=== PATIENT | male | born 2000 | race Caucasian/White ===

== ENCOUNTER 2023-10-08 13:19 | Emergency (ER) | payer OTHER, SELFPAY ==
[2023-10-08 13:32] VITALS: BP 184/92; PULSE 106; RESP 16; TEMP 36.8; O2SAT 98; BMI 19.3
[2023-10-08 14:27] LABS: Alanine Aminotransferase 20 IU/L (<50); Albumin 4.9 g/dL (3.5-5.0); Albumin Globulin Ratio 1.5 (1.0-2.8); Alkaline Phosphatase 70 U/L (38-126); Aspartate Aminotransferase 42 IU/L (17-59); Bilirubin Total 1.3 mg/dL (0.2-1.3); Blood Urea Nitrogen 15 mg/dL (9-20); Carbon Dioxide 30 mmol/L (22-32); Chloride 100 mmol/L (98-107); Estimated Glomerular Filt Rate > 60 mL/min (>60); Globulin 3.3 g/dL (1.7-4.1); Glucose 115 mg/dL (70-100); HEMOLYSIS 22 (0-50); Lipase 71 U/L (23-300); Potassium 4.2 mmol/L (3.4-5.1); Sodium 138 mmol/L (137-145); Total Protein 8.2 g/dL (6.3-8.2)
--- NOTE | 2023-10-08 14:47 | ED.GENADULT ---
HPI - General Adult General Chief complaint: Abdominal Pain Stated complaint: stomache pain, night sweats Time Seen by Provider: 10/08/23 14:27 Source: patient Mode of arrival: Ambulatory History of Present Illness HPI narrative: Patient is a 22-year-old male. Has a history of asthma. Is here with his mother for evaluation of occasional left-sided stomach pain and night sweats. Patient states that the night sweats actually started approximately 6 years ago. They have been infrequent until just recently where he states that they become more pronounced. They only occur at night. He is also having occasional left-sided abdominal pain. He also states that this only happens at night as well. The night sweats they abdominal pain do not seem to be associated as he has never had them together. No testicular pain. No urinary symptoms. No change in bowel habits. Father was just recently diagnosed with leukemia. He also just recently told his mother of the symptoms which is why they are in the emergency department today. He currently does not have any abdominal discomfort. Related Data Previous Rx's Medication Instructions Recorded Spacer: Inhaler Spacer Device 0 dev ##1 08/04/16 albuterol sulfate 90 mcg/actuation 0 INH Q4HP PRN #1 inh 08/04/16 aerosol inhaler (Ventolin HFA) adapalene 0.1 % topical gel 0 topical HS ##45 09/23/16 clindamycin phosphate 1 % lotion 0 topical QDAY #60 mL 09/23/16 bupropion HCl 100 mg tablet 50 mg (1/2 x 100 mg) PO BID #30 11/24/16 tabs permethrin 5 % topical cream 5 % topical Q DAY #1 tube 05/20/17 (Elimite) Review of Systems Review of Systems ROS Unobtainable: All systems reviewed & are unremarkable except as noted in HPI and below Patient History Social History Smoking Status: Current every day smoker Smoking Status: Current every day smoker tobacco type: vaping Substance Use Type: marijuana Exam Initial Vital Signs Initial Vital Signs: Vital Signs Temperature 98.3 F 10/08/23 13:32 Pulse Rate 106 H 10/08/23 13:32 Respiratory Rate 16 10/08/23 13:32 Blood Pressure 184/92 H 10/08/23 13:32 Pulse Oximetry 98 10/08/23 13:32 Oxygen Delivery Method Room Air 10/08/23 13:32 Const General: cooperative, comfortable and No ill appearing HENPR Head: normal to inspection and normocephalic Resp Effort & Inspection: normal respiratory effort Auscultation: clear to auscultation bilaterally Cardio Rate: regular rate Rhythm: regular rhythm GI Inspection: normal to inspection and non-distended Palpation: soft and No tender Skin General: no rashes or lesions noted Neuro General: patient alert, patient awake and moves all extremities Extrem General: capillary refill normal Course Orders Ordered: ED Orders 10/08/23 13:39 Consult to [facility] [place] - Communications Professor Stat 10/08/23 14:04 Complete Blood Count AUTO DIFF Stat Comprehensive Metabolic Panel Stat Lipase Stat 10/08/23 14:47 CT abdomen pelvis w con Stat Ondansetron HCl (Ondansetron 4 Mg/2 Ml Inj) 4 mg IV NOW PRN PRN Reason: Nausea And Vomiting Vital Signs Vital signs: Vital Signs - 8 hr 10/08/23 13:32 Temperature 98.3 F Pulse Rate 106 H Respiratory Rate 16 Blood Pressure 184/92 H Pulse Oximetry 98 Oxygen Delivery Method Room Air Medical Decision Making Lab Data Lab results reviewed: Yes I reviewed the patient's lab results. 10/08/23 14:04 10/08/23 14:04 Labs: Lab Results 10/08/23 Range/Units 14:04 WBC 6.3 (4.5-11.0) X10^3/uL RBC 5.06 (4.5-5.9) X10^6/uL Hgb 16.2 (13.5-17.5) g/dL Hct 47.1 (41-53) % MCV 93.1 (80-100) fL MCH 31.9 (26-34) PG MCHC 34.3 (30-36) % RDW 13.4 (11.6-14.8) % Plt Count 245 (150-400) X10^3/uL Neut % (Auto) 56.3 (50-75) % Lymph % (Auto) 35.1 (25-40) % [place] % (Auto) 7.2 (3-14) % Eos % (Auto) 0.9 L (2-4) % Baso % (Auto) 0.5 (0-2) % Neut # (Auto) 3500 (5397-0798) /uL Lymph # (Auto) 2200 (6453-0231) /uL [place] # (Auto) 500 (0-900) /uL Eos # (Auto) 100 (0-450) /uL Baso # (Auto) 0 (0-100) /uL Sodium 138 (137-145) mmol/L Potassium 4.2 (3.4-5.1) mmol/L Chloride 100 (98-107) mmol/L Carbon Dioxide 30 (22-32) mmol/L BUN 15 (9-20) mg/dL Creatinine 1.00 (0.66-1.25) mg/dL Estimated GFR > 60 (>60) mL/min BUN/Creatinine Ratio 15.0 (6-22) Glucose 115 H (70-100) mg/dL Calcium 10.0 (8.4-10.2) mg/dL Total Bilirubin 1.3 (0.2-1.3) mg/dL AST 42 (17-59) IU/L ALT 20 (<50) IU/L Alkaline Phosphatase 70 (38-126) U/L Total Protein 8.2 (6.3-8.2) g/dL Albumin 4.9 (3.5-5.0) g/dL Globulin 3.3 (1.7-4.1) g/dL Albumin/Globulin Ratio 1.5 (1.0-2.8) Lipase 71 (23-300) U/L Urine Dip Bedside Urine Glucose Negative Bedside Urine Bilirubin - Negative Bedside Urine Ketone +/- 5 Urine Specific [place] 1.020 Bedside Urine Occult Blood - Negative Bedside Urine pH 6.0 Bedside Urine Protein - Negative Bedside Urine Urobilinogen - Negative Bedside Urine Nitrite - Negative Bedside Urine Leukocytes - Negative Esterase Point of care testing: Urine Dip Bedside Urine Glucose Negative Bedside Urine Bilirubin - Negative Bedside Urine Ketone +/- 5 Urine Specific [place] 1.020 Bedside Urine Occult Blood - Negative Bedside Urine pH 6.0 Bedside Urine Protein - Negative Bedside Urine Urobilinogen - Negative Bedside Urine Nitrite - Negative Bedside Urine Leukocytes - Negative Esterase Imaging Data CT scan - abdomen/pelvis: Radiologist's Impression: PROCEDURE: CT ABDOMEN PELVIS W CON INDICATIONS: Left lower quadrant abdominal pain TECHNIQUE: After the administration of intravenous contrast, axial sections acquired from the lung bases to the pubic symphysis. Coronal and sagittal reformats were performed. For radiation dose reduction, the following was used: automated exposure control, adjustment of mA and/or kV according to patient size. COMPARISON: None. FINDINGS: Image quality: Excellent. Lung bases: Unremarkable. Heart: No significant findings. ABDOMEN: Liver: No solid mass. Gallbladder: No radiopaque gallstones or wall thickening. Biliary ducts: No biliary dilation. Pancreas: No ductal dilation. Spleen: Size is within normal limits. Adrenal Glands: No adrenal nodules. Kidneys and Ureters: No hydronephrosis. No solid mass. No complex renal cystic lesion which requires follow up. Stomach and Bowel: Normal colonic caliber, without significant wall thickening. Peritoneum: No abnormal intraperitoneal fluid. No free air. Ventral Wall: No hernia. Abdominal Nodes: No retroperitoneal or mesenteric adenopathy by size criteria. Vessels: Aorta and inferior vena cava are normal in size. PELVIS: Pelvic Organs: Unremarkable. Bladder: Unremarkable. Pelvic Nodes: No enlarged lymph nodes. Miscellaneous: No inguinal hernias are seen. Bones: No aggressive osseous abnormality. IMPRESSION: No acute abdominal or pelvic abnormality. [facility] Narrative Medical decision making narrative: Blood work today is unremarkable. CT scan is unremarkable. Physical exam is unremarkable. Vital signs unremarkable. He is had 6 years of occasional night sweats which I acknowledge he states has been more frequent over the past several weeks. He is also having weeks/months of occasional abdominal discomfort without any other associated symptoms. Unsure the exact etiology of the patient's symptoms. No further workup was required in the emergency department. He was seen by social work. He was scheduled for follow-up with a doctor on 10/22/2023 at 0815 in the morning. I did discuss this with the patient and his mother at bedside. They were given return precautions. They expressed understanding and agreement Discharge Plan Departure Patient Disposition: Home Clinical Impression: Night sweats, Abdominal pain, Fatigue Activity Restrictions/Additional Instructions: We were able to get you a follow-up appointment scheduled with Dr. Cardoso on 10/22/2023 at [address] Dr. Cardoso is part of the [facility]. Their phone number is [phone]. I recommend that you keep this appointment. Return to the emergency department for new symptoms. Prescriptions: No Action albuterol sulfate [Ventolin HFA] 90 MCG/PUFF HFA aerosol inhaler 0 INH Q4HP PRNQty: 1 1RF Spacer: Inhaler Spacer Device 0 dev Qty: 1 0RF adapalene 0.1 % gel 0 Topical HS Qty: 45 1RF clindamycin phosphate 1 % lotion 0 Topical QDAY Qty: 60 1RF bupropion HCl 100 MG tablet 50 mg PO BID Qty: 30 2RF permethrin [Elimite] 5 % cream 5 % Topical Q DAY Qty: 1 2RF Referrals: Miscellaneous,Doctor, MD [Primary Care Provider] - Stand Alone Forms: Patient Portal/API
[2023-10-08 14:51] LABS: Add Manual Diff / Slide Review NO; Basophils Absolute Auto 0 /uL (0-100); Basophils Percent Auto 0.5 % (0-2); Eosinophils Absolute Auto 100 /uL (0-450); Eosinophils Percent Auto 0.9 % (2-4); Hematocrit 47.1 % (41-53); Hemoglobin 16.2 g/dL (13.5-17.5); Lymphocytes Absolute Auto 2200 /uL (1100-4500); Lymphocytes Percent Auto 35.1 % (25-40); Mean Corpuscular HGB Conc 34.3 % (30-36); Mean Corpuscular Hemoglobin 31.9 PG (26-34); Mean Corpuscular Volume 93.1 fL (80-100); Monocytes Absolute Auto 500 /uL (0-900); Monocytes Percent Auto 7.2 % (3-14); Neutrophils Absolute Auto 3500 /uL (1500-7000); Neutrophils Percent Auto 56.3 % (50-75); Platelet Count 245 X10^3/uL (150-400); Red Blood Cell Count 5.06 X10^6/uL (4.5-5.9); Red Cell Distribution Width 13.4 % (11.6-14.8); White Blood Cell Count 6.3 X10^3/uL (4.5-11.0)
--- NOTE | 2023-10-08 16:09 | CM.SWNOTE ---
ED AUTHOR AGENT Note AUTHOR AGENT receives consult due to patient's concern for losing housing, and concern for ability to pay for basic needs. Patient is 22 y/o male who presents to ED via POV with mother due to concern for abdominal pain and night sweats. Patient also endorses concern for lack of sleep. Patient does not have current PCP or insurance at this time. AUTHOR AGENT enters room to meet with patient, patient presents as A/Ox4. Present in room is patient's mother, patient gives consent for mother to be present. Patient endorses he resides with a roommate in [place]. Patient endorses he is currently unemployed and has a job lined up with [employer] but he needs to take a UA test. Patient states he stopped using marijuana a few days ago and is worried about UA result. Patient endorses difficulty going to sleep and states marijuana was the only thing that helped him sleep. Patient endorses he is motivated to no longer use THC to keep and obtain this job. Patient endorses interest in resources for food and utilities. Patient states he is currently borrowing money from a friend to pay for rent. Patient endorses he has family in [facility] as well. AUTHOR AGENT assists patient in applying for insurance, patient signs up for Medicaid with [employer]. Patient and mother ask for assistance in establishing care with PCP. AUTHOR AGENT calls PCP office and schedules PCP appt with Dr. Aakash Cardoso at [facility] for 10/22/23 at 8:15 am check in. AUTHOR AGENT reviews this with patient, patient indicates agreement and understanding. Plan: patient to d/c to home with mother upon medical clearance. Patient to f/u with PCP [facility]AN[facility] Abernathy
[2023-10-08 17:08] VITALS: BP 135/90; PULSE 68; RESP 14; O2SAT 99
== END 2023-10-08 17:09 | disposition home or self-care (01) ==
PROVIDERS: Emergency Provider Emergency Medicine; Family Provider Pediatrics
DX: R61 Generalized hyperhidrosis (principal); R10.32 Left lower quadrant pain; R53.83 Other fatigue
CPT/HCPCS: 36415; 74177; 80053; 81003; 83690; 85025; 99284; Q9967

== ENCOUNTER 2024-01-11 21:53 | Emergency (ER) | payer OTHER, MEDICAID, SELFPAY ==
[2024-01-11 21:55] VITALS: BP 125/85; PULSE 88; RESP 18; TEMP 36.1; O2SAT 100
--- NOTE | 2024-01-11 22:12 | ED_ITS ---
HPI - General Adult General Chief complaint: Toxicology Problem Stated complaint: alcohol poisoning Time Seen by Provider: 01/11/24 22:03 Source: patient and family Mode of arrival: Ambulatory History of Present Illness HPI narrative: Patient is a 23-year-old male. Has a history of alcohol abuse. Drinks on a daily basis. His last drink was sometime within the past 12 hours. He stated that he was drinking today because he would the day off of work. At some point he fell asleep. Does not remember when he fell asleep. When he woke up he stated that he was ?hung over? having quite a bit of nausea. Some lower back discomfort. He is here with his sister stating that he is interested in alcohol detox/rehab. He does take? mood stabilizing? medications that is prescribed by his primary doctor. He last saw his primary doctor earlier this month. This was a routine visit. He stated that the medications do seem to be helping. He states he has never been to detox/rehab. He is never withdrawn from alcohol before. Related Data Previous Rx's Medication Instructions Recorded Spacer: Inhaler Spacer Device 0 dev ##1 08/04/16 albuterol sulfate 90 mcg/actuation 2 puff inhalation Q4-6H PRN 11/12/23 aerosol inhaler (Ventolin HFA) shortness of breath or wheezing #6.7 grams lamotrigine 100 mg tablet 100 mg PO DAILY #30 tabs 11/27/23 Allergies Allergy/AdvReac Type Severity Reaction Status Date / Time No Known Drug Allergies Allergy Verified 01/11/24 21:55 Review of Systems Review of Systems ROS Unobtainable: All systems reviewed & are unremarkable except as noted in HPI and below Patient History Medical History Depression (~2008) Anxiety (~2013) Family History (Updated 11/11/23 @ 18:04 by Pam Kelley) Father Mental health problem Mother Mental health problem Sister Mental health problem Sister Mental health problem Social History Smoking Status: Current every day smoker Smoking Status: Current every day smoker tobacco type: vaping alcohol intake frequency: 3 or more drinks per day Substance Use Type: marijuana Exam Initial Vital Signs Initial Vital Signs: Vital Signs Temperature 97.0 F L 01/11/24 21:55 Pulse Rate 88 01/11/24 21:55 Respiratory Rate 18 01/11/24 21:55 Blood Pressure 125/85 01/11/24 21:55 Pulse Oximetry 100 01/11/24 21:55 Oxygen Delivery Method Room Air 01/11/24 21:55 Const General: cooperative, comfortable and No ill appearing HENMT Head: normal to inspection and normocephalic Resp Effort & Inspection: normal respiratory effort Auscultation: clear to auscultation bilaterally Cardio Rate: regular rate Rhythm: regular rhythm GI Inspection: non-distended Skin General: no rashes or lesions noted Neuro General: patient alert, patient awake, patient oriented x3 and moves all extremities Speech: speech normal Gait: normal gait Extrem General: normal to inspection Course Orders Ordered: ED Orders 01/11/24 22:15 Complete Blood Count AUTO DIFF Stat Comprehensive Metabolic Panel Stat Ethanol (ETOH) Stat Lipase Stat 01/11/24 23:10 Urinalysis and Microscopic Stat Urine Drug Screen, Rapid Stat Discontinued Medications Sodium Chloride (Normal Saline 0.9%) 1,000 mls @ 1,000 mls/hr IV BOLUS ONE Stop: 01/11/24 23:11 Last Infusion: 01/11/24 23:14 Dose: Infused Documented By: Admin: 01/11/24 22:29 Dose: 1,000 mls/hr Documented By: SAMANTHA Ketorolac Tromethamine (Ketorolac 30 Mg/Ml Vial) 30 mg IV NOW ONE Stop: 01/11/24 22:32 Last Admin: 01/11/24 22:35 Dose: 30 mg Documented By: SAMANTHA Ondansetron HCl (Ondansetron 4 Mg/2 Ml Inj) 4 mg IV NOW ONE Stop: 01/11/24 22:13 Last Admin: 01/11/24 22:29 Dose: 4 mg Documented By: SAMANTHA Vital Signs Vital signs: Vital Signs - 8 hr 01/11/24 21:55 01/12/24 00:46 Temperature 97.0 F L 98.3 F Pulse Rate 88 110 H Respiratory Rate 18 17 Blood Pressure 125/85 121/64 Pulse Oximetry 100 98 Oxygen Delivery Method Room Air Medical Decision Making Lab Data Lab results reviewed: Yes I reviewed the patient's lab results. 01/11/24 22:15 01/11/24 22:15 Labs: Lab Results 01/11/24 01/11/24 01/11/24 Range/Units 22:15 23:10 23:10 WBC 14.5 H (4.5-11.0) X10^3/uL RBC 5.20 (4.5-5.9) X10^6/uL Hgb 16.9 (13.5-17.5) g/dL Hct 50.9 (41-53) % MCV 97.9 (80-100) fL MCH 32.5 (26-34) PG MCHC 33.2 (30-36) % RDW 14.6 (11.6-14.8) % Plt Count 287 (150-400) X10^3/uL Neut % (Auto) 78.3 H (50-75) % Lymph % (Auto) 18.5 L (25-40) % [place] % (Auto) 2.4 L (3-14) % Eos % (Auto) 0.2 L (2-4) % Baso % (Auto) 0.6 (0-2) % Neut # (Auto) 40686 H (9675-9999) /uL Lymph # (Auto) 2700 (3238-5180) /uL [place] # (Auto) 400 (0-900) /uL Eos # (Auto) 0 (0-450) /uL Baso # (Auto) 100 (0-100) /uL Sodium 144 (137-145) mmol/L Potassium 4.0 (3.4-5.1) mmol/L Chloride 108 H (98-107) mmol/L Carbon Dioxide 18 L (22-32) mmol/L BUN 15 (9-20) mg/dL Creatinine 0.97 (0.66-1.25) mg/dL Estimated GFR > 60 (>60) mL/min BUN/Creatinine Ratio 15.5 (6-22) Glucose 77 (70-100) mg/dL Calcium 10.3 H (8.4-10.2) mg/dL Total Bilirubin 0.7 (0.2-1.3) mg/dL AST 67 H (17-59) IU/L ALT 39 (<50) IU/L Alkaline Phosphatase 136 H (38-126) U/L Total Protein 8.8 H (6.3-8.2) g/dL Albumin 5.1 H (3.5-5.0) g/dL Globulin 3.7 (1.7-4.1) g/dL Albumin/Globulin Ratio 1.4 (1.0-2.8) Lipase 52 (23-300) U/L Urine Color Yellow Urine Appearance Clear Urine pH 5.5 TNP (4.5-8.0) Ur Specific [place] 1.025 (1.000-1.035) Urine Protein Trace H (Negative) Urine Glucose (UA) Negative (Negative) g/dL Urine Ketones 3+ H (NEGATIVE) Urine Occult Blood Negative (Negative) Urine Nitrate Negative (Negative) Urine Bilirubin Negative (NEGATIVE) Urine Urobilinogen 0.2 (0.2) E.U./dL Ur Leukocyte Esterase Negative (NEGATIVE) Urine RBC None seen (0-5/HPF) Urine WBC None seen (0-5/HPF) Ur Squamous Epith Cells 0-1 /hpf (0-5/HPF) Urine Bacteria None seen (None) Ur Culture Indicated? Cult not indicated Vol Urine Centrifuged 10ml (spun) U Opiates 300ng/mL cut Negative (Negative) Ur Oxycodone Screen Negative (Negative) Urine Methadone Screen Negative (Negative) Ur Barbiturates Screen Negative (Negative) U Tricyclic Antidepress Negative (Negative) Ur Phencyclidine Scrn Negative (Negative) Ur Amphetamines Screen Negative (Negative) U Methamphetamines Scrn Negative (Negative) Ur MDMA Scrn (Ecstasy) Negative (Negative) U Benzodiazepines Scrn Negative (Negative) Urine Cocaine Screen Negative (Negative) U Marijuana (THC) Screen Positive H (Negative) Urine Specific [place] TNP Ethyl Alcohol 137 H ( - 10) mg/dL Ur Creatinine TNP Urine Dip Bedside Urine Glucose Negative Bedside Urine Bilirubin - Negative Bedside Urine Ketone +++ 80 Urine Specific [place] 1.030 Bedside Urine Occult Blood - Negative Bedside Urine pH 6.0 Bedside Urine Protein +/- 15 Bedside Urine Urobilinogen - Negative Bedside Urine Nitrite - Negative Bedside Urine Leukocytes - Negative Esterase Point of care testing: Urine Dip Bedside Urine Glucose Negative Bedside Urine Bilirubin - Negative Bedside Urine Ketone +++ 80 Urine Specific [place] 1.030 Bedside Urine Occult Blood - Negative Bedside Urine pH 6.0 Bedside Urine Protein +/- 15 Bedside Urine Urobilinogen - Negative Bedside Urine Nitrite - Negative Bedside Urine Leukocytes - Negative Esterase MDM Narrative Medical decision making narrative: Patient is nauseous. No other signs of withdrawal. Alert and oriented x3. GCS of 15. Alcohol level 137. Not tachycardic. He was given Zofran. Patient is medically cleared. Will attempt to find placement for detox/rehab. We will continue to observe and treat any alcohol detox symptoms as needed. [facility]. Information has been sent to that facility. Unsure whether not they are going to be able to review that tonight or if it will be in the morning. We confirmed that they would be okay with the patient being discharged home they will contact him in the morning. We confirmed that they do have his contact information. Patient was also given information for the facility. He was going home under the care of his sister. Discharge Plan Departure Patient Disposition: Home Clinical Impression: Alcohol use disorder Instructions: DI for Alcohol Use Disorder Activity Restrictions/Additional Instructions: No driving for the next 24 hours. Continue to take all of your medications as directed. You should be receiving a call from [facility] detox facility sometime in the morning. If you do not hear from them you can contact their facility at [phone]. Return to the emergency department for new or worsening symptoms. Prescriptions: No Action albuterol sulfate [Ventolin HFA] 90 mcg/actuation HFA aerosol inhaler 2 puff inhalation Q4-6H PRN (Reason: shortness of breath or wheezing) Qty: 6.7 3RF Spacer: Inhaler Spacer Device 0 dev Qty: 1 0RF lamotrigine 100 mg tablet 100 mg PO DAILY Qty: 30 2RF Referrals: Aakash Cardoso MD [Primary Care Provider] - Stand Alone Forms: Patient Portal/API
[2024-01-11 22:26] LABS: Add Manual Diff / Slide Review NO; Basophils Absolute Auto 100 /uL (0-100); Basophils Percent Auto 0.6 % (0-2); Eosinophils Absolute Auto 0 /uL (0-450); Eosinophils Percent Auto 0.2 % (2-4); Hematocrit 50.9 % (41-53); Hemoglobin 16.9 g/dL (13.5-17.5); Lymphocytes Absolute Auto 2700 /uL (1100-4500); Lymphocytes Percent Auto 18.5 % (25-40); Mean Corpuscular HGB Conc 33.2 % (30-36); Mean Corpuscular Hemoglobin 32.5 PG (26-34); Mean Corpuscular Volume 97.9 fL (80-100); Monocytes Absolute Auto 400 /uL (0-900); Monocytes Percent Auto 2.4 % (3-14); Neutrophils Absolute Auto 11400 /uL (1500-7000); Neutrophils Percent Auto 78.3 % (50-75); Platelet Count 287 X10^3/uL (150-400); Red Cell Distribution Width 14.6 % (11.6-14.8); White Blood Cell Count 14.5 X10^3/uL (4.5-11.0)
[2024-01-11] MEDS: SODIUM CHLORIDE 0.9% 1,000 ML 1000 ML IV (22:29)
[2024-01-11] MEDS: ONDANSETRON 4 MG/2 ML INJ IV (22:29)
[2024-01-11] MEDS: KETOROLAC 30 MG/ML VIAL IV (22:35)
[2024-01-11 22:38] LABS: Alanine Aminotransferase 39 IU/L (<50); Albumin 5.1 g/dL (3.5-5.0); Albumin Globulin Ratio 1.4 (1.0-2.8); Alkaline Phosphatase 136 U/L (38-126); Aspartate Aminotransferase 67 IU/L (17-59); BUN Creatinine Ratio 15.5 (6-22); Bilirubin Total 0.7 mg/dL (0.2-1.3); Blood Urea Nitrogen 15 mg/dL (9-20); Calcium 10.3 mg/dL (8.4-10.2); Carbon Dioxide 18 mmol/L (22-32); Chloride 108 mmol/L (98-107); Estimated Glomerular Filt Rate > 60 mL/min (>60); Ethanol (ETOH) 137 mg/dL; Globulin 3.7 g/dL (1.7-4.1); Glucose 77 mg/dL (70-100); HEMOLYSIS < 15 (0-50); Lipase 52 U/L (23-300); Sodium 144 mmol/L (137-145); Total Protein 8.8 g/dL (6.3-8.2)
[2024-01-11 23:31] LABS: UR Morphine/Opiate cutoff 300 Negative (Negative); Urine Amphetamines Negative (Negative); Urine Barbiturates Negative (Negative); Urine Benzodiazepines Negative (Negative); Urine Cocaine Negative (Negative); Urine MDMA Negative (Negative); Urine Methadone Negative (Negative); Urine Methamphetamines Negative (Negative); Urine Oxycodone Negative (Negative); Urine Phencyclidine Negative (Negative); Urine Tetrahydrocannabinol Positive (Negative); Urine Tricyclic Antidepressant Negative (Negative)
[2024-01-11 23:39] LABS: Appearance Urine UA CLEAR; Bilirubin Urine UA NEGATIVE (NEGATIVE); Color Urine UA YELLOW; Glucose Urine UA NEGATIVE (Negative); Ketones Urine UA 3+ (NEGATIVE); Leukocyte Esterase Urine UA NEGATIVE (NEGATIVE); Nitrite Urine UA NEGATIVE (Negative); Occult Blood Urine UA NEGATIVE (Negative); Protein Urine UA TRACE (Negative); Specific Gravity Urine UA 1.025 (1.000-1.035); Urobilinogen Urine UA 0.2 E.U./dL (0.2); pH Urine UA 5.5 (4.5-8.0)
[2024-01-11 23:46] LABS: Bacteria Urine None Seen; Culture Indicated Urine Cult Not Indicated; RBC Urine None Seen (0-5/HPF); Squamous Epithelial Cell Urine 0-1 /HPF (0-5/HPF); Urine Volume 10mL (spun); WBC Urine None Seen (0-5/HPF)
--- NOTE | 2024-01-12 00:24 | PC.NURSE ---
Pt connected with [facility] via ED phone for intake questioning. Intake packet faxed to [facility] for review
--- NOTE | 2024-01-12 00:41 | PC.NURSE ---
Pt and sister would like to wait at home for acceptance at [facility]. This tech Spoke with and [facility] and both were ok with Pt waiting at home with sisters supervision
[2024-01-12 00:46] VITALS: BP 121/64; PULSE 110; RESP 17; TEMP 36.8; O2SAT 98
== END 2024-01-12 00:56 | disposition home or self-care (01) ==
PROVIDERS: Emergency Provider Emergency Medicine; Family Provider Pediatrics; PCP Family Medicine
DX: F10.90 Alcohol use, unspecified, uncomplicated (principal); Y90.6 Blood alcohol level of 120-199 mg/100 ml
CPT/HCPCS: 36415; 80053; 80305; 80320; 81001; 81003; 83690; 85025; 96374; 96375; 99284; J1885; J2405

== ENCOUNTER 2024-05-02 06:18 | Emergency (ER) | payer OTHER, MEDICAID, SELFPAY ==
[2024-05-02 06:27] VITALS: BMI 21.5
--- NOTE | 2024-05-02 06:46 | ED_ITS ---
HPI - Ear Problem General Chief complaint: Ear Stated complaint: rt side earpain and lots of pressure cant hear now Time Seen by Provider: 05/02/24 06:21 Source: patient Mode of arrival: Ambulatory History of Present Illness HPI Narrative: 23-year-old male with history of alcohol use disorder presents for evaluation of right-sided ear pain, pressure, decreased hearing. States that he woke up with symptoms. He tried to gently clean out his ear, but it was very painful and did not improve his symptoms, so he decided to present for evaluation. Related Data Previous Rx's Medication Instructions Recorded Spacer: Inhaler Spacer Device 0 dev ##1 08/04/16 albuterol sulfate 90 mcg/actuation 2 puff inhalation Q4-6H PRN 11/12/23 aerosol inhaler (Ventolin HFA) shortness of breath or wheezing #6.7 grams naltrexone 50 mg tablet 100 mg (2 x 50 mg) PO DAILY #60 02/19/24 tabs lamotrigine 150 mg tablet 150 mg PO DAILY #30 tabs 03/22/24 ofloxacin 0.3 % ear drops 10 drp EAR-RIGHT DAILY 7 days #5 mL 05/02/24 Allergies Allergy/AdvReac Type Severity Reaction Status Date / Time No Known Drug Allergies Allergy Verified 03/22/24 10:07 Patient History Medical History Depression (~2008) Anxiety (~2013) Family History Father Mental health problem Mother Mental health problem Sister Mental health problem Sister Mental health problem Social History Smoking Status: Current every day smoker Smoking Status: Current every day smoker tobacco type: vaping alcohol intake frequency: 3 or more drinks per day Substance Use Type: marijuana Exam Initial Vital Signs Initial Vital Signs: Const: Awake, alert, no acute distress, nontoxic appearing HEENT: Left ear normal, right TM normal, right ear canal edematous, pain with speculum insertion Skin: Warm, Dry, intact, no rashes Neuro: AO x3, CN II-XII grossly intact, moves all extremities Course Orders Ordered: ED Orders 05/02/24 06:30 Consult to [facility] [place] - Billet Recorder Stat Medical Decision Making MDM Narrative Medical decision making narrative: Decreased hearing in right ear. Exam is most consistent with otitis externa. Patient counseled on diagnosis, home care instructions. Antibiotic drops sent to pharmacy of choice Discharge Plan Departure Patient Disposition: Home Clinical Impression: Otitis externa Instructions: DI for Otitis Externa Activity Restrictions/Additional Instructions: It appears as though your right ear canal is irritated and inflamed. The ear drum and the space behind the ear drum looks clear at this time. Finish her antibiotic drops as prescribed. Do not place any Q-tips or ear buds into your ear while you were undergoing treatment. RX to [facility] in [place] Prescriptions: New ofloxacin 0.3 % drops 10 drp EAR-RIGHT DAILY 7 Days Qty: 5 0RF No Action lamotrigine 150 mg tablet 150 mg PO DAILY Qty: 30 2RF albuterol sulfate [Ventolin HFA] 90 mcg/actuation HFA aerosol inhaler 2 puff inhalation Q4-6H PRN (Reason: shortness of breath or wheezing) Qty: 6.7 3RF naltrexone 50 mg tablet 100 mg PO DAILY Qty: 60 2RF Rx Instructions: Take 1 tab daily for 1 week then 2 tabs daily thereafter Spacer: Inhaler Spacer Device 0 dev Qty: 1 0RF Referrals: Aakash Cardoso MD [Primary Care Provider] - Stand Alone Forms: Patient Portal/API
== END 2024-05-02 07:03 | disposition home or self-care (01) ==
PROVIDERS: Emergency Provider Emergency Medicine; Family Provider Pediatrics; PCP Family Medicine
DX: H60.91 Unspecified otitis externa, right ear (principal)
CPT/HCPCS: 99282

== ENCOUNTER 2024-05-05 22:42 | Emergency (ER) | payer OTHER, MEDICAID, SELFPAY ==
[2024-05-05 22:46] VITALS: BP 172/99; PULSE 120; RESP 20; TEMP 36.8; O2SAT 97; BMI 21.5
[2024-05-05 23:14] VITALS: BP 138/95; PULSE 125; O2SAT 98
[2024-05-05 23:30] VITALS: BP 109/57; PULSE 92; O2SAT 91
--- NOTE | 2024-05-05 23:49 | ED_ITS ---
HPI - Alcohol General Chief Complaint: Toxicology Problem Stated Complaint: etoh Time Seen by Provider: 05/05/24 23:06 Source: patient Mode of arrival: Ambulatory History of Present Illness HPI narrative: 23-year-old male with history of alcohol use disorder presents to the emergency department. He allegedly told triage that he wanted detox, however upon my evaluation patient states that he does not know why he was in the emergency dep artment and repeatedly states ?let me out of this bed, I have to piss?. Denies wanting to harm himself. Endorses alcohol use this evening. Related Data Previous Rx's Medication Instructions Recorded Spacer: Inhaler Spacer Device 0 dev ##1 08/04/16 albuterol sulfate 90 mcg/actuation 2 puff inhalation Q4-6H PRN 11/12/23 aerosol inhaler (Ventolin HFA) shortness of breath or wheezing #6.7 grams naltrexone 50 mg tablet 100 mg (2 x 50 mg) PO DAILY #60 02/19/24 tabs lamotrigine 150 mg tablet 150 mg PO DAILY #30 tabs 03/22/24 ofloxacin 0.3 % ear drops 10 drp EAR-RIGHT DAILY 7 days #5 mL 05/02/24 Allergies Allergy/AdvReac Type Severity Reaction Status Date / Time No Known Drug Allergies Allergy Verified 03/22/24 10:07 Patient History Medical History Depression (~2008) Anxiety (~2013) Family History Father Mental health problem Mother Mental health problem Sister Mental health problem Sister Mental health problem Social History Smoking Status: Current every day smoker Smoking Status: Current every day smoker tobacco type: cigarettes alcohol intake frequency: 3 or more drinks per day Alcohol type: hard liquor Substance Use Type: does not use Exam Initial Vital Signs Initial Vital Signs: Vital Signs Temperature 98.2 F 05/05/24 22:46 Pulse Rate 120 H 05/05/24 22:46 Respiratory Rate 20 05/05/24 22:46 Blood Pressure 172/99 H 05/05/24 22:46 Pulse Oximetry 97 05/05/24 22:46 Oxygen Delivery Method Room Air 05/05/24 22:46 Const: Awake, appears intoxicated, no acute distress Cardiac: Tachycardia, regular rhythm RESP: unlabored, clear bilaterally Skin: Warm, Dry, intact, no rashes Neuro: Moves all extremities, no focal deficit Course Orders Ordered: ED Orders 05/05/24 22:52 Consult to DRAFTING TECHNICIAN - Wheel Buffer Stat Vital Signs Vital signs: Vital Signs - 8 hr 05/05/24 22:46 05/05/24 23:14 05/05/24 23:14 Temperature 98.2 F Pulse Rate 120 H 125 H Respiratory Rate 20 Blood Pressure 172/99 H 138/95 H Pulse Oximetry 97 98 Oxygen Delivery Method Room Air 05/05/24 23:30 05/05/24 23:30 05/06/24 00:00 Temperature Pulse Rate 92 H 126 H Respiratory Rate Blood Pressure 109/57 L Pulse Oximetry 91 98 Oxygen Delivery Method 05/06/24 00:00 05/06/24 00:30 05/06/24 00:30 Temperature Pulse Rate 95 H Respiratory Rate Blood Pressure 128/79 137/98 H Pulse Oximetry 96 Oxygen Delivery Method MDM - Alcohol Lab Data Labs: Urine Dip Bedside Urine Glucose Negative Bedside Urine Bilirubin - Negative Bedside Urine Ketone - Negative Urine Specific Dilley 1.005 Bedside Urine Occult Blood - Negative Bedside Urine pH 6.0 Bedside Urine Protein - Negative Bedside Urine Urobilinogen - Negative Bedside Urine Nitrite - Negative Bedside Urine Leukocytes - Negative Esterase [facility] Narrative Medical decision making narrative: Patient presenting acutely intoxicated on alcohol. Apparently told triage that he wanted detox, but states that he isn't sure why he was here right now and his main concern is being able to use the restroom. Patient denies wanting to go to detox at this time. While in the emergency department patient called a friend to pick him up to take him home. Patient left prior to receiving any discharge paperwork. Discharge Plan Departure Patient Disposition: Home Clinical Impression: Alcohol use disorder Prescriptions: No Action lamotrigine 150 mg tablet 150 mg PO DAILY Qty: 30 2RF albuterol sulfate [Ventolin HFA] 90 mcg/actuation HFA aerosol inhaler 2 puff inhalation Q4-6H PRN (Reason: shortness of breath or wheezing) Qty: 6.7 3RF naltrexone 50 mg tablet 100 mg PO DAILY Qty: 60 2RF Rx Instructions: Take 1 tab daily for 1 week then 2 tabs daily thereafter Spacer: Inhaler Spacer Device 0 dev Qty: 1 0RF ofloxacin 0.3 % drops 10 drp EAR-RIGHT DAILY 7 Days Qty: 5 0RF Referrals: Aakash Cardoso MD [Primary Care Provider] - Stand Alone Forms: Patient Portal/API
[2024-05-06] VITALS: BP 128/79; PULSE 126; O2SAT 98
[2024-05-06 00:30] VITALS: BP 137/98; PULSE 95; O2SAT 96
== END 2024-05-06 01:15 | disposition home or self-care (01) ==
PROVIDERS: Emergency Provider Emergency Medicine; Family Provider Pediatrics; PCP Family Medicine
DX: F10.129 Alcohol abuse with intoxication, unspecified (principal); R00.0 Tachycardia, unspecified
CPT/HCPCS: 36415; 81003; 99283